=== PATIENT | female | born 1935 | race Caucasian/White ===

== ENCOUNTER → 2017-07-06 | Outpatient (CLI) | payer OTHER ==
[~2017-07-06] MED LIST: CALTRATE PLUS T1 TAB PO; COUMADIN; COUMADIN10 MG PO; HCTZ PO; LOPRESSOR; LOPRESSOR PO; LOVASTATIN20 MG PO; METOPROLOL; MULTI-DAY VITAM1 TAB PO; [UNRECOGNIZED DRUG - OTHER]
--- NOTE | ~2017-07-06 | BD1 ---
[facility] A Service of [facility] RADIOLOGY TEXT RESULTS PATIENT: JHON BRUSH LOCATION: [facility] : 37 UNIT #: [id number] AGE: [address]: Alexis Weiss MD SEX: F ORDER DR: [id number] [facility] [address] [place], [place] [address] [id number] O MR#: [id number] Acc #: [id number] NAME: JHON BRUSH : 1935 SEX: F STUDY DATE/TIME: 07/06/2017 10:30 UNIT: [facility] ROOM: STUDY DESCRIPTION: BD Dexa Bone Dens 1+ Site Attending Physician: Alexis Weiss M.D. Referring Physician: Alexis Weiss M.D. Ordering Physician: Alexis Weiss M.D. Primary Care Physician: Alexis Weiss M.D. MEDICAL IMAGING REPORT This report is preliminary unless electronic signature is present EXAM DXA scan, 07/06/2017 HISTORY Status post menopause with no hormone replacement therapy. Osteopenia. Family history of breast carcinoma in mother. Hypertension with blood pressure medication for 10 years. Smoking history for 15 years. FINDINGS Bone mineral density in the lumbar spine from L1-L4 was 0.893 g/cm2, which is 1.4 standard deviations below the mean when compared to the young adult reference population, which is characteristic of osteopenia. This is 1.3 standard deviations above the mean when compared to the age-match population. Compared with 06/19/2015, there has been an increase in bone mineral density in the lumbar spine of 3.7%. Bone mineral density in the left femoral neck was 0.661 g/cm2, which is 1.7 standard deviations below the mean when compared to the young adult reference population, which is characteristic of osteopenia. This is 0.7 standard deviations above the mean when compared to the age-match population. Compared with 06/19/2015, there has been an increase in bone mineral density in the left hip of 9.1%. IMPRESSION Bone mineral density in the lumbar spine and the left hip characteristic of osteopenia. Compared with 06/19/2015, there has been an increase in bone mineral density in the lumbar spine and the left hip. Dictated by... Yunior Crawley M.D. THIS IS AN ELECTRONICALLY VERIFIED REPORT Yunior Crawley M.D. at 07/07/2017 2:14 PM KRT/psc [facility] A Service of [facility] & [facility] RADIOLOGY TEXT RESULTS PATIENT: JHON BRUSH [id number] 37 UNIT #: [id number] AGE: [address]: Alexis Weiss MD SEX: F ORDER DR: TD: 07/07/2017 02:27 JOB #: [id number] MEDICAL IMAGING REPORT Page 1 of 1 COPY
--- NOTE | ~2017-07-06 | MY29 ---
[facility] A Service of [facility] RADIOLOGY TEXT RESULTS PATIENT: JHON BRUSH LOCATION: [facility] : 37 UNIT #: [id number] AGE: [address]: Alexis Weiss MD SEX: F ORDER DR: [id number] [facility] [address]. [place], [place] [address] [id number] O MR#: [id number] Acc #: [id number] NAME: JHON BRUSH : 1935 SEX: F STUDY DATE/TIME: 07/06/2017 10:31 UNIT: [facility] ROOM: STUDY DESCRIPTION: MY UMAIR SCREENING W/ CAD BILAT Attending Physician: Alexis Weiss M.D. Referring Physician: Alexis Weiss M.D. Ordering Physician: Alexis Weiss M.D. Primary Care Physician: Alexis Weiss M.D. MEDICAL IMAGING REPORT This report is preliminary unless electronic signature is present EXAM Bilateral digital screening mammogram CAD COMPARISON 07/01/2016, 06/19/2015, 06/13/2014, 06/10/2013, 06/08/2012, 06/02/2011, 05/27/2010, 05/17/2009, 02/29/2008, 02/24/2007. HISTORY Breast cancer screening. 82-year asymptomatic female who reports a mother and 2 nieces with breast cancer. FINDINGS Breasts are almost entirely fatty. There are expected arterial calcifications both breasts. There are no suspicious findings in either breast. IMPRESSION No mammographic evidence of malignancy. Continued annual screening mammography is recommended for as long as the patient is in good health ([employer]). BIRADS: 2 Benign Finding. Patients over the age of 40 are entered into a reminder system with target due date for the next mammogram. A result letter will also be sent to the patient. Dictated by... Chidi Huggins M.D. [facility] A Service of [facility] RADIOLOGY TEXT RESULTS PATIENT: JHON BRUSH LOCATION: [facility] : 37 UNIT #: [id number] AGE: [address]: Alexis Weiss MD SEX: F ORDER DR: THIS IS AN ELECTRONICALLY VERIFIED REPORT Chidi Huggins M.D. at 07/08/2017 11:45 AM BLM/pcl TD: 07/06/2017 21:15 JOB #: [id number] MEDICAL IMAGING REPORT Page 1 of 1 COPY
== END | disposition home or self-care (01) ==
LOC: CWCC 10:05
DX: Z12.31 Encounter for screening mammogram for malignant neoplasm of breast (principal); Z13.820 Encounter for screening for osteoporosis; Z78.0 Asymptomatic menopausal state
CPT/HCPCS: 77080; G0202